=== PATIENT | female | born 1950 | race African-American/Black ===

== ENCOUNTER 2017-06-22 14:10 | Inpatient (IN) | payer MEDICARE, OTHER ==
[2017-06-22] MEDS ORDERED: PROPRANOLOL 1 MG/ML IV (15:15)
[2017-06-22 16:59] LABS: HEMATOCRIT 36.1 % (36.0-47.0); HEMOGLOBIN 12.2 g/dL (12.0-15.5); MEAN CORPUSCULAR HEMOGLOBIN 31 pg (25-35); MEAN CORPUSCULAR HGB CONC 34 g/dL (31-37); MEAN CORPUSCULAR VOLUME 91 fL (79-100); PLATELET COUNT 291 x10^3/uL (140-400); RED BLOOD COUNT 3.98 x10^6/uL (3.50-5.40); RED CELL DISTRIBUTION WIDTH 12.8 % (11.5-14.5); WHITE BLOOD COUNT 10.2 x10^3/uL (4.0-11.0)
[2017-06-22 17:19] LABS: ANION GAP 5 (6-14); BLOOD UREA NITROGEN 12 mg/dL (7-20); CALCIUM 9.1 mg/dL (8.5-10.1); CARBON DIOXIDE 30 mmol/L (21-32); CHLORIDE 102 mmol/L (98-107); CREATININE 0.8 mg/dL (0.6-1.0); GFR 86.8; GLUCOSE 205 mg/dL (70-99); POTASSIUM 3.6 mmol/L (3.5-5.1); SODIUM 137 mmol/L (136-145)
[2017-06-22] MEDS: IOHEXOL 300 MG/ML 100ML VIAL. IV (17:45)
[2017-06-22] MEDS: amLODIPine BESYLATE 5 MG TABLET PO (17:47)
[2017-06-22 17:49] LABS: TROPONINI < 0.017 ng/mL (0.000-0.055)
[2017-06-22] MEDS ORDERED: CONTRAST GIVEN MC (18:00)
[2017-06-22 18:54] LABS: BILIRUBIN,URINE NEGATIVE (NEG); CLARITY,URINE CLEAR; COLOR,URINE YELLOW; GLUCOSE,URINE NEGATIVE (NEG); NITRITE,URINE NEGATIVE (NEG); PROTEIN,URINE NEGATIVE (NEG-TRACE); UROBILINOGEN,URINE 0.2 mg/dL (0.2 mg/dL)
[2017-06-22 19:10] LABS: BACTERIA,URINE MODERATE /HPF (0-FEW); RBC,URINE 0 /HPF (0-2); SQUAMOUS EPITHELIAL CELL,UR MOD /LPF
[2017-06-22] MEDS: ATORVASTATIN CALCIUM 10 MG TABLET. PO (20:21)
[2017-06-22] MEDS: LABETALOL 20 MG/4 ML DISP.SYRIN. IVP (20:22)
[2017-06-22] MEDS: ENOXAPARIN 30 MG/0.3 ML SYRINGE. SQ (20:22)
[2017-06-22 22:41] LABS: TROPONINI < 0.017 ng/mL (0.000-0.055)
[2017-06-23] MEDS: LABETALOL 20 MG/4 ML DISP.SYRIN. IVP (03:02)
[2017-06-23] MEDS: hydrALAZINE 25 MG TABLET PO ×5 (08:22→20:37)
[2017-06-23] MEDS: amLODIPine BESYLATE 5 MG TABLET PO ×2 (08:23→10:59)
[2017-06-23] MEDS: LISINOPRIL 20 MG TABLET PO (08:23)
[2017-06-23] MEDS: ASPIRIN ENTERIC COATED 81 MG TABLET.DR. PO (08:24)
[2017-06-23] MEDS ORDERED: amLODIPine BESYLATE 5 MG TABLET PO (09:00)
[2017-06-23] MEDS ORDERED: DEXTROSE 50% 25 GM / 50ML DISP.SYRIN. IV (10:00)
[2017-06-23] MEDS: amLODIPine BESYLATE 10 MG TABLET PO (10:15)
[2017-06-23] MEDS: PANTOPRAZOLE 40 MG TABLET.DR. PO (10:59)
[2017-06-23 12:16] LABS: POC GLUCOSE 163 mg/dL (70-99)
[2017-06-23] MEDS: INSULIN ASPART 300 UNITS/3 ML INSULN.PEN SQ ×2 (12:18→17:43)
[2017-06-23 16:02] LABS: POC GLUCOSE 154 mg/dL (70-99)
[2017-06-23] MEDS: ATORVASTATIN CALCIUM 10 MG TABLET. PO (20:37)
[2017-06-23] MEDS: ENOXAPARIN 40 MG/0.4 ML SYRINGE. SQ (20:38)
[2017-06-23 21:24] LABS: POC GLUCOSE 133 mg/dL (70-99)
[2017-06-24 01:07] LABS: HEMOGLOBIN A1C 6.1 % (4.8-5.6)
[2017-06-24 05:31] LABS: HEMATOCRIT 32.5 % (36.0-47.0); HEMOGLOBIN 10.9 g/dL (12.0-15.5); MEAN CORPUSCULAR HEMOGLOBIN 31 pg (25-35); MEAN CORPUSCULAR HGB CONC 34 g/dL (31-37); MEAN CORPUSCULAR VOLUME 91 fL (79-100); PLATELET COUNT 273 x10^3/uL (140-400); RED BLOOD COUNT 3.56 x10^6/uL (3.50-5.40); RED CELL DISTRIBUTION WIDTH 12.9 % (11.5-14.5); WHITE BLOOD COUNT 9.2 x10^3/uL (4.0-11.0)
[2017-06-24 05:47] LABS: ANION GAP 8 (6-14); BLOOD UREA NITROGEN 12 mg/dL (7-20); CALCIUM 9.3 mg/dL (8.5-10.1); CARBON DIOXIDE 28 mmol/L (21-32); CHLORIDE 105 mmol/L (98-107); CHOLESTEROL 184 mg/dL (0-200); GFR 67.1; GLUCOSE 124 mg/dL (70-99); HDLC 44 mg/dL (40-60); LDLC 113 mg/dL (0-100); NON-HDL CHOLESTEROL 140 mg/dL (0-129); POTASSIUM 3.8 mmol/L (3.5-5.1); SODIUM 141 mmol/L (136-145); TRIGLYCERIDES 135 mg/dL (0-150); VLDLC 27 mg/dL (0-40)
[2017-06-24 05:48] LABS: CHOLESTEROL/HDL RATIO 4.2
[2017-06-24] MEDS: INSULIN ASPART 300 UNITS/3 ML INSULN.PEN SQ ×3 (08:00→17:00)
[2017-06-24] MEDS: amLODIPine BESYLATE 10 MG TABLET PO (08:26)
[2017-06-24] MEDS: PANTOPRAZOLE 40 MG TABLET.DR. PO (08:26)
[2017-06-24] MEDS: LISINOPRIL 20 MG TABLET PO (08:26)
[2017-06-24] MEDS: ASPIRIN ENTERIC COATED 81 MG TABLET.DR. PO (08:26)
[2017-06-24] MEDS: hydrALAZINE 25 MG TABLET PO ×3 (08:27→20:46)
[2017-06-24] MEDS: CLOPIDOGREL BISULFATE 75 MG TABLET PO (11:39)
[2017-06-24 12:11] LABS: POC GLUCOSE 99 mg/dL (70-99)
[2017-06-24 12:12] LABS: POC GLUCOSE 112 mg/dL (70-99)
[2017-06-24 17:04] LABS: POC GLUCOSE 102 mg/dL (70-99)
[2017-06-24] MEDS: ATORVASTATIN CALCIUM 10 MG TABLET. PO (20:45)
[2017-06-24] MEDS: ENOXAPARIN 40 MG/0.4 ML SYRINGE. SQ (20:46)
[2017-06-25 06:14] LABS: HEMATOCRIT 36.2 % (36.0-47.0); HEMOGLOBIN 11.9 g/dL (12.0-15.5); MEAN CORPUSCULAR HEMOGLOBIN 30 pg (25-35); MEAN CORPUSCULAR HGB CONC 33 g/dL (31-37); MEAN CORPUSCULAR VOLUME 92 fL (79-100); PLATELET COUNT 284 x10^3/uL (140-400); RED BLOOD COUNT 3.94 x10^6/uL (3.50-5.40); RED CELL DISTRIBUTION WIDTH 13.1 % (11.5-14.5); WHITE BLOOD COUNT 9.3 x10^3/uL (4.0-11.0)
[2017-06-25 06:26] LABS: ANION GAP 9 (6-14); BLOOD UREA NITROGEN 12 mg/dL (7-20); CALCIUM 9.6 mg/dL (8.5-10.1); CARBON DIOXIDE 28 mmol/L (21-32); CHLORIDE 104 mmol/L (98-107); CREATININE 0.8 mg/dL (0.6-1.0); GFR 86.8; GLUCOSE 104 mg/dL (70-99); POTASSIUM 3.7 mmol/L (3.5-5.1); SODIUM 141 mmol/L (136-145)
[2017-06-25] MEDS: INSULIN ASPART 300 UNITS/3 ML INSULN.PEN SQ ×3 (08:00→17:00)
[2017-06-25] MEDS: CLOPIDOGREL BISULFATE 75 MG TABLET PO (08:24)
[2017-06-25] MEDS: PANTOPRAZOLE 40 MG TABLET.DR. PO (08:24)
[2017-06-25] MEDS: hydrALAZINE 25 MG TABLET PO (08:25)
[2017-06-25] MEDS: ASPIRIN ENTERIC COATED 81 MG TABLET.DR. PO (08:25)
[2017-06-25] MEDS: amLODIPine BESYLATE 10 MG TABLET PO (08:25)
[2017-06-25] MEDS: LISINOPRIL 20 MG TABLET PO (08:26)
[2017-06-25 08:29] LABS: POC GLUCOSE 101 mg/dL (70-99)
[2017-06-25] MEDS: LABETALOL HCL 100 MG TABLET. PO (10:06)
[2017-06-25 12:25] LABS: POC GLUCOSE 147 mg/dL (70-99)
[2017-06-25 17:21] LABS: POC GLUCOSE 103 mg/dL (70-99)
[2017-06-25] MEDS: LABETALOL HCL 200 MG TABLET PO (20:59)
[2017-06-25] MEDS: ATORVASTATIN CALCIUM 10 MG TABLET. PO (20:59)
[2017-06-25] MEDS: ENOXAPARIN 40 MG/0.4 ML SYRINGE. SQ (21:00)
[2017-06-26 05:46] LABS: HEMOGLOBIN 10.6 g/dL (12.0-15.5); MEAN CORPUSCULAR HEMOGLOBIN 30 pg (25-35); MEAN CORPUSCULAR HGB CONC 33 g/dL (31-37); MEAN CORPUSCULAR VOLUME 91 fL (79-100); PLATELET COUNT 267 x10^3/uL (140-400); RED CELL DISTRIBUTION WIDTH 13.3 % (11.5-14.5); WHITE BLOOD COUNT 10.5 x10^3/uL (4.0-11.0)
[2017-06-26 06:19] LABS: ANION GAP 11 (6-14); BLOOD UREA NITROGEN 15 mg/dL (7-20); CALCIUM 9.4 mg/dL (8.5-10.1); CARBON DIOXIDE 27 mmol/L (21-32); CHLORIDE 103 mmol/L (98-107); CREATININE 0.8 mg/dL (0.6-1.0); GFR 86.8; GLUCOSE 104 mg/dL (70-99); POTASSIUM 3.5 mmol/L (3.5-5.1); SODIUM 141 mmol/L (136-145)
[2017-06-26] MEDS: PANTOPRAZOLE 40 MG TABLET.DR. PO ×2 (06:33→08:50)
[2017-06-26] MEDS: INSULIN ASPART 300 UNITS/3 ML INSULN.PEN SQ (08:00)
[2017-06-26 08:33] LABS: POC GLUCOSE 103 mg/dL (70-99)
[2017-06-26] MEDS: amLODIPine BESYLATE 10 MG TABLET PO (08:49)
[2017-06-26] MEDS: LABETALOL HCL 200 MG TABLET PO (08:49)
[2017-06-26] MEDS: ASPIRIN ENTERIC COATED 81 MG TABLET.DR. PO (08:49)
[2017-06-26] MEDS: LISINOPRIL 20 MG TABLET PO (08:50)
[2017-06-26] MEDS: CLOPIDOGREL BISULFATE 75 MG TABLET PO (08:50)
== END 2017-06-26 12:06 | disposition home or self-care (01) | DRG 68 ==
LOC: 2 SOUTH 14:10
DX: I65.23 Occlusion and stenosis of bilateral carotid arteries (principal); E11.51 Type 2 diabetes mellitus with diabetic peripheral angiopathy without gangrene; I11.9 Hypertensive heart disease without heart failure; J44.9 Chronic obstructive pulmonary disease, unspecified; I70.201 Unspecified atherosclerosis of native arteries of extremities, right leg; I16.0 Hypertensive urgency; E78.5 Hyperlipidemia, unspecified; F17.210 Nicotine dependence, cigarettes, uncomplicated; M19.90 Unspecified osteoarthritis, unspecified site; I25.10 Atherosclerotic heart disease of native coronary artery without angina pectoris; Z82.49 Family history of ischemic heart disease and other diseases of the circulatory system; Z91.19 Patient's noncompliance with other medical treatment and regimen
CPT/HCPCS: 36415; 70498; 71045; 76770; 80048; 80061; 81001; 82962; 83036; 84443; 84484; 85027; 87086; 93005; 93306; 93925; J1650; J1815; J3490; Q9967